=== PATIENT | female | born 1990 | race Caucasian/White ===

== ENCOUNTER 2017-04-08 21:11 | Emergency (ER) | payer OTHER ==
[~2017-04-08] VITALS: Ht 165.1 cm; Wt 56.2 kg
--- NOTE | ~2017-04-08 | EKG ---
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1990 Requested By: Ilir Sorenson Order Number: [id number] MD: Bulmaro Santiago Measurements Intervals [place] Rate: 77 P: 72 TN: 143 QRS: 117 QRSD: 91 T: 30 QT: 382 QTc: 433 Interpretive Statements Sinus rhythm Right axis deviation Baseline wander in lead(s) V2 Compared to ECG 03/30/2015 18:22:04 No significant change Electronically Signed On 04-09-2017 8:54:57 CDT by Bulmaro Santiago [email or web address] <ELECTRONICALLY SIGNED> By: Bulmaro Santiago MD, [facility] 04/09/17 [id number] Bulmaro Santiago MD, [facility] /EPI
[~2017-04-08 21:11] MED LIST: FOCALIN XR20 MG PO; KEFLEX500 MG PO; NORCO 5-325 TA1 EACH PO; RONDEC-DM SYRU120 ML PO; [UNRECOGNIZED DRUG - OTHER]
[2017-04-08] MEDS ORDERED: VENLAFAXINE H37.5 MG PO (21:24)
[2017-04-08] MEDS ORDERED: AMOXIL 875 MG875 M2 PO (21:24)
[2017-04-08] MEDS ORDERED: SINGULAIR 10 MG10 M1 PO (21:25)
[2017-04-08] MEDS ORDERED: ZYRTEC10 M2 PO (21:25)
[2017-04-08] MEDS ORDERED: TOPAMAX 25 MG T25 M1 PO (21:25)
[2017-04-08] MEDS ORDERED: PROAIR HFA8.5 GM INH (21:26)
[2017-04-08] MEDS ORDERED: SRONYX1 EACH PO (21:26)
[2017-04-08] MEDS ORDERED: PULMICORT0.5 MG/22 INH (21:27)
[2017-04-08] MEDS ORDERED: FLONASE 0.05%50 MCG NASAL (21:27)
[2017-04-08] MEDS ORDERED: VITAMIN D1000 UNI1 PO (21:27)
[2017-04-08 22:02] LABS: ABG SAMPLE TYPE VENOUS; BE(vivo) 0.1 mmol/L (-2 to +3); HCO3 25.8 mmol/L (22.0-26.0); LACTATE 1.55 mmol/L (0.5-2.0); O2(CT) 5.3 mL/dL (15.0-23.0); O2Hb VENOUS 29.3 (65.0-85.0); PCO2 VENOUS 45.9 mmHg (41.0-51.0); PO2 VENOUS 16.3 mmHg (35.0-45.0); sO2 VENOUS 21.5 % (65.0-85.0); tCO2 27.2 mmol/L (24.0-30.0)
[2017-04-08 22:03] LABS: STICK SITE LINE
[2017-04-08 22:05] LABS: ABSOLUTE NEUTROPHILS 3.1 thou/uL (1.4-8.2); BASOPHILS 1.1 % (0.0-2.0); EOSINOPHILS 3.4 % (0.0-3.0); HEMATOCRIT 36.7 % (37.0-47.0); HEMOGLOBIN 12.8 gm/dL (12.0-15.0); LYMPHOCYTES 37.9 % (24.0-44.0); MCH 30.5 pg (26.0-34.0); MCV 87.1 fL (80.0-100.0); MONOCYTES 6.5 % (1.0-8.0); PLATELET COUNT 322 thou/uL (150-400); POLYS 51.1 % (36.0-66.0); RBC 4.21 mil/uL (4.20-5.00); WBC 6.1 thou/uL (4.0-11.0)
[2017-04-08 22:07] LABS: MANUAL DIFF NO
[2017-04-08 22:25] LABS: ANION GAP 10 mmol/L (7-16); BUN 6 mg/dL (7-18); CHLORIDE 105 mmol/L (98-107); CO2 26 mmol/L (21-32); CREATININE 0.8 mg/dL (0.6-1.0); GLUCOSE 89 mg/dL (74-106); POTASSIUM 3.4 mmol/L (3.5-5.1); SODIUM 141 mmol/L (136-145)
[2017-04-08 22:35] LABS: ALBUMIN 4.5 g/dL (3.4-5.0); ALKALINE PHOSPHATASE 43 U/L (46-116); NT-PRO BRAIN NAT PEPTIDE 76 pg/mL (<300); SGOT 17 U/L (15-37); SGPT 17 U/L (30-65); TOTAL BILIRUBIN 0.5 mg/dL (<0.1-1.0); TROPONIN-I < 0.04 ng/mL (<0.04-0.07)
[2017-04-08] MEDS ORDERED: ATIVAN0.5 MG PO (22:36)
[2017-04-08 22:53] VITALS: BP 110/76
== END 2017-04-08 22:54 | disposition home or self-care (01) ==
LOC: ER 21:11
PROVIDERS: Emergency Medicine
DX: R06.00 Dyspnea, unspecified (principal); J45.909 Unspecified asthma, uncomplicated; R01.1 Cardiac murmur, unspecified; F45.8 Other somatoform disorders; Z90.49 Acquired absence of other specified parts of digestive tract; Z88.2 Allergy status to sulfonamides

== ENCOUNTER 2017-06-30 20:19 | Emergency (ER) | payer OTHER ==
[~2017-06-30] VITALS: Ht 162.6 cm; Wt 58.5 kg
[~2017-06-30 20:19] MED LIST changes: +AMOXIL 875 MG875 M2 PO; +ATIVAN0.5 MG PO; +FLONASE 0.05%50 MCG NASAL; +PROAIR HFA8.5 GM INH; +PULMICORT0.5 MG/22 INH; +SINGULAIR 10 MG10 M1 PO; +SRONYX1 EACH PO; +TOPAMAX 25 MG T25 M1 PO; +VENLAFAXINE H37.5 MG PO; +VITAMIN D1000 UNI1 PO; +ZYRTEC10 M2 PO
[2017-06-30] MEDS ORDERED: IBUPROFEN 400400 M2 PO (20:23)
[2017-06-30] MEDS ORDERED: VENLAFAXIN37.5 MG/1 PO (20:24)
[2017-06-30] MEDS ORDERED: CETIRIZINE HCL5 MG PO (20:24)
[2017-06-30] MEDS ORDERED: DEXMETHYLPHENIDA5 M1 PO (20:24)
[2017-06-30] MEDS ORDERED: SRONYX1 EACH PO (20:25)
[2017-06-30] MEDS ORDERED: TOPAMAX 25 MG T25 M1 PO (20:25)
[2017-06-30 22:23] LABS: ABSOLUTE NEUTROPHILS 3.5 thou/uL (1.4-8.2); BASOPHILS 1.1 % (0.0-2.0); EOSINOPHILS 2.5 % (0.0-3.0); HEMATOCRIT 37.3 % (37.0-47.0); HEMOGLOBIN 13.1 gm/dL (12.0-15.0); LYMPHOCYTES 28.9 % (24.0-44.0); MCH 30.6 pg (26.0-34.0); MCHC 35.2 g/dL (28.0-37.0); MCV 87.2 fL (80.0-100.0); MONOCYTES 7.2 % (1.0-8.0); PLATELET COUNT 314 thou/uL (150-400); POLYS 60.3 % (36.0-66.0); RBC 4.27 mil/uL (4.20-5.00); RDW 12.4 % (10.5-14.5); WBC 5.8 thou/uL (4.0-11.0)
[2017-06-30 22:24] LABS: MANUAL DIFF NO
[2017-06-30 22:36] LABS: CALCIUM 8.1 mg/dL (8.5-10.1); CREATININE 0.8 mg/dL (0.6-1.0); POTASSIUM 3.4 mmol/L (3.5-5.1)
[2017-06-30 22:41] LABS: ALBUMIN 3.6 g/dL (3.4-5.0); TOTAL BILIRUBIN 0.5 mg/dL (<0.1-1.0); TOTAL PROTEIN 6.8 g/dL (6.4-8.2)
[2017-06-30] MEDS ORDERED: PHENERGAN 25 MG25 M1 PO (22:55)
[2017-06-30] MEDS ORDERED: BENTYL 20 MG TA20 M1 PO (22:55)
[2017-06-30 23:10] LABS: URINE BILIRUBIN NEGATIVE (Negative); URINE BLOOD NEGATIVE (Negative); URINE COLOR YELLOW; URINE GLUCOSE-RANDOM* NEGATIVE (Negative); URINE KETONES NEGATIVE (Negative); URINE LEUKOCYTES-REFLEX NEGATIVE (Negative); URINE PROTEIN (DIPSTICK) NEGATIVE (Negative); URINE SPECIFIC GRAVITY 1.015 (1.003-1.035); URINE UROBILINOGEN 0.2 E.U./dl (0.2-1.0)
[2017-06-30 23:29] VITALS: BP 116/64
== END 2017-06-30 23:31 | disposition home or self-care (01) ==
LOC: ER 20:19
PROVIDERS: Physician Assistant
DX: R10.9 Unspecified abdominal pain (principal); R14.0 Abdominal distension (gaseous); J45.909 Unspecified asthma, uncomplicated; Z98.890 Other specified postprocedural states; Z88.2 Allergy status to sulfonamides